=== PATIENT | female | born 1960 | race Hispanic/Latino ===

== ENCOUNTER 2024-02-14 06:11 | Day surgery (SDC) | payer BC ==
[2024-02-10 14:36] VITALS: BMI 35.2
[2024-02-14] MEDS ORDERED: Verapamil 5 MG/2 ML VIAL ONE (06:51)
[2024-02-14] MEDS ORDERED: fentaNYL 50 mcg/mL 1 mL Vial ONE ×2 (06:51→10:30)
[2024-02-14] MEDS ORDERED: Midazolam HCl 2 mg/2 ml Vial ONE (06:51)
[2024-02-14] MEDS ORDERED: Heparin 10,000 UNITS/ 10 ML VIAL ONE (06:51)
[2024-02-14] MEDS ORDERED: Nitroglycerin 50 MG/250 ML BOT 250 ML ONE (06:52)
[2024-02-14] MEDS ORDERED: Lidocaine 1% MPF 2 ML VIAL ONE (07:22)
[2024-02-14 08:04] LABS: Cardiac Risk 3.6 (Less than 4.5)
[2024-02-14] MEDS ORDERED: Atropine Sulfate 1 mg/10 ml Syringe ONE (08:30)
[2024-02-14] MEDS ORDERED: Acetaminophen 325 MG TAB ONE (09:58)
[2024-02-14] MEDS ORDERED: Iopamidol 370 76% 100 ML VIAL ONE (10:36)
== END 2024-02-14 14:45 | disposition home or self-care (01) ==
LOC: SDC 06:11 → EDSTATUS 14:30 → SDC 14:45
PROVIDERS: ATTEND Internal Medicine Cardiovascular Disease
PROC: 02703ZZ Dilation of Coronary Artery, One Artery, Percutaneous Approach (ICD-10-PCS; principal; 2024-02-14)
DX: R07.9 Chest pain, unspecified (principal); I25.10 Atherosclerotic heart disease of native coronary artery without angina pectoris; I10 Essential (primary) hypertension; I25.2 Old myocardial infarction; E78.5 Hyperlipidemia, unspecified; Z79.82 Long term (current) use of aspirin; Z79.899 Other long term (current) drug therapy; Z95.5 Presence of coronary angioplasty implant and graft; Z96.652 Presence of left artificial knee joint
CPT/HCPCS: 80061; 85347; 92928; 93005; 93010; 93454; 99152; 99153; C1725; C1769; C1874; C1887; C1894; C9600; J0461; J1644; J2250; J3010; Q9967

== ENCOUNTER 2024-03-19 17:58 | Emergency (ER) | payer BC ==
[~2024-03-19 17:58] MED LIST: Iopamidol-370 76% 500 ML MDV (1 ML CHARGE) ONE
[2024-03-19 19:05] LABS: #Basophils 0.03 10x3/uL (0.0-0.2); %Basophils 0.5 % (0.0-1.0); %Eosinophils 1.8 % (0.0-10.0); %Monocytes 6.5 % (0.0-10.0); %Neutrophils 73.9 % (42.0-75.0); Hematocrit 40.2 % (36.0-47.0); Hemoglobin 13.2 g/dL (12.0-16.0); Mean Corpuscular HGB CONC 32.8 g/dL (32.0-36.0); Mean Corpuscular Hemoglobin 31.1 pg (27.0-31.0); Mean Corpuscular Volume 94.6 fL (78.0-98.0); Mean Platelet Volume 9.6 fL (7.4-10.4); Platelet Count 183 10x3/uL (130-400); RBC Distribution Width 12.4 % (11.5-14.5); Red Blood Cell (RBC) Count 4.25 mill/uL (4.20-5.40)
[2024-03-19 19:19] LABS: ALT (SGPT) 17 U/L (8-55); AST (SGOT) 17 U/L (5-34); Albumin 4.1 g/dL (3.4-4.8); Alkaline Phosphatase 80 U/L (40-110); Anion Gap 14 mmol/L (10-20); BUN (Urea Nitrogen) 19 mg/dL (9.8-20.1); Bilirubin, Total 1.1 mg/dL (0.2-1.2); Calc. Creatinine Clearance 0 mL/min (70-130); Calcium 9.3 mg/dL (7.8-10.44); Carbon Dioxide 21 mmol/L (23-31); Chloride 107 mmol/L (98-107); Estimated GFR 72; Globulin 3.3 g/dL (2.4-3.5); Glucose 172 mg/dL (80-115); Potassium 3.7 mmol/L (3.5-5.1); Protein, Total 7.4 g/dL (5.8-8.1); Sodium 138 mmol/L (136-145)
[2024-03-19 19:25] LABS: Troponin I Less than 0.010 ng/mL (< 0.028)
[2024-03-19 22:10] LABS: Troponin I Less than 0.010 ng/mL (< 0.028)
[2024-03-19 22:42] LABS: Bilirubin Negative (Negative); Blood, Urine Negative (Negative); CAUTI Indications for Culture Alt mental st,lethar; Clarity Clear (Clear); Glucose, Urine (Dipstick) Normal (Negative); Ketone, Urine Negative (Negative); Leukocyte Negative Leu/uL (Negative); Nitrite Negative (Negative); Protein, Urine (Dipstick) Negative (Neg-Trace); RBC/HPF 0-3 HPF (0-3); Squamous Epithelial 0-3 HPF (0-3); Urobilinogen Normal mg/dL (Less than 2); WBC/HPF 0-3 HPF (0-3); pH, Urine 5.5 (5.0-9.0)
[2024-03-19 22:54] LABS: Specific Gravity, Urine 1.051 (1.002-1.036)
[2024-03-19 22:59] LABS: Bacteria/HPF 3+ HPF (None Seen)
[2024-03-19 23:00] LABS: Urine Culture Reflex No No
== END 2024-03-19 23:05 | disposition home or self-care (01) ==
LOC: ERS 17:58
DX: R07.89 Other chest pain (principal); R06.00 Dyspnea, unspecified; I25.2 Old myocardial infarction; Z95.5 Presence of coronary angioplasty implant and graft
CPT/HCPCS: 36415; 71275; 74177; 81001; 83690; 83880; 84484; 93005; Q9967